=== PATIENT | male | born 1980 | race Caucasian/White ===

== ENCOUNTER 2017-02-11 20:48 | Emergency (ER) | payer SELFPAY ==
[2017-02-11 23:58] LABS: HEMOGLOBIN 14.9 gm/dl (14.0-17.5); RED BLOOD COUNT 4.73 M/UL (4.20-5.50); WHITE BLOOD COUNT 7.4 K/UL (4.5-11.0)
[2017-02-12 00:10] LABS: BUN/CREATININE RATIO 17 (0-10)
== END 2017-02-12 02:15 | disposition home or self-care (01) ==
LOC: ER1 20:48
PROVIDERS: Emergency Medicine
DX: R07.9 Chest pain, unspecified (principal)
CPT/HCPCS: 36415; 71020; 80053; 81001; 82550; 82553; 83690; 83874; 84484; 85025; 85610; 85730; 93005; 99285